=== PATIENT | male | born 1950 | race Caucasian/White ===

== ENCOUNTER 2024-10-19 08:08 | Outpatient (CLI) | payer MEDICARE | END 2024-10-19 08:09 | disposition home or self-care (01) | LOC: SCSMRI 08:08 | PROVIDERS: ATTEND Surgery | DX: M48.02 Spinal stenosis, cervical region (principal); M43.17 Spondylolisthesis, lumbosacral region; M47.26 Other spondylosis with radiculopathy, lumbar region; M51.16 Intervertebral disc disorders with radiculopathy, lumbar region; M47.812 Spondylosis without myelopathy or radiculopathy, cervical region; M51.379 Other intervertebral disc degeneration, lumbosacral region without mention of lumbar back pain or lower extremity pain; Z98.890 Other specified postprocedural states; Z87.81 Personal history of (healed) traumatic fracture | CPT/HCPCS: 72050; 72120; 72141; 72148 ==